=== PATIENT | female | born 1965 | race Caucasian/White ===

== ENCOUNTER 2017-01-01 16:40 | Emergency (ER) | payer BC ==
--- NOTE | 2017-01-01 19:38 | ED ORDER SUMMARY ---
..... Patient: ZECHARIAH CELESTE OrderSheet [facility] VisitID: [id number] [place] [address] 51y, F Registration Date/Time: 01/01/2017 ORDER SHEET Weight: 65.7 kg (stated) Allergies: Amoxicillin, Denies Allergy to Shellfish, Iodine GENERAL ORDERS: CBC w Diff Urgent (17:23 01/01/2017 TChapman R.N. per protocol) (Ack 17:32 LNations ER Tech1) (17:36 TChapman R.N.) CMP Urgent (17:23 01/01/2017 TChapman R.N. per protocol) (Ack 17:32 LNations ER Tech1) (17:36 TChapman R.N.) UA-Culture if indicated Urgent (17:23 01/01/2017 TChapman R.N. per protocol) (Ack 17:32 LNations ER Tech1) (18:12 LTapper) Lipase Urgent (17:23 01/01/2017 TChapman R.N. per protocol) (Ack 17:32 LNations ER Tech1) (17:36 TChapman R.N.) CT Abd/Pel w Cont (No) (normal) Urgent (18:24 01/01/2017 HBivens A.R.N.P.) (18:35 HBivens A.R.N.P.) (Cancelled: Other18:35 HBivens A.R.N.P.) CT Abd/Pel wo Cont Urgent (18:35 01/01/2017 HBivens A.R.N.P.) (Ack 18:36 LNations ER Tech1) (18:56 MCampbell) (Cancelled: Patient Mgisrny02:05 DDean R.N.) MEDICATION ORDERS: IV FLUIDS: IV NS with Normal Saline 1 Liter: initial bolus 1000 mL (1000 mL/hr), then 1000 mL/hr for X1 (NOW) (17:22 01/01/2017 TChapman R.N. per protocol) (17:38 TChapman R.N.) Ondansetron IV 4 mg (NOW) (17:37 01/01/2017 TChapman R.N. per protocol) (17:42 TChapman R.N.) Toradol IV 30 mg (NOW) (18:24 01/01/2017 HBivens A.R.N.P.) (Ack 18:25 DDean R.N.) (18:31 TChapman R.N.) Protonix IVP 40mg 40 mg (Mix in NS 10ml over 2min) (19:34 01/01/2017 HBivens A.R.N.P.) (Ack 19:38 DDean R.N.) (19:57 DDean R.N.) ORDER SHEET NOTES: [Electronically signed by Anahi Daley R.N. (20:07 01/01/2017)] [Electronically signed by Mable RothmanR.N.P. (22:49 01/01/2017)] [Electronically locked/signed by Anahi Daley R.N. (20:07 01/01/2017)]
--- NOTE | 2017-01-01 19:38 | ED CLINICAL REPORT ---
Clinical Report - Physicians/Mid Levels [facility] [address] [place] [address] 01/01/2017 16:41 Patient: ZECHARIAH CELESTE Time Seen: 18:05; initial patient contact, initial documentation, patient care assumed. Arrived- By private vehicle. Historian- patient. HISTORY OF PRESENT ILLNESS Chief Complaint: ABDOMINAL PAIN. At its maximum, severity described as severe. When seen in the E.D., severity described as severe. Modifying factors. Not worsened by anything. Not relieved by anything. It is described as "pain" and it is described as located in the epigastric area and left upper quadrant and radiating to the upper back. This started about 3 days ago and is still present. The patient has had nausea and vomiting. No loss of appetite or diarrhea. No additional abdominal pain. No recent travel. Similar symptoms previously: None. Recent medical care: Not recently seen/assessed. REVIEW OF SYSTEMS No constipation, black stools, hematemesis, difficulty with urination or pain with urination. No urinary frequency, bloody stools, fever, chest pain or difficulty breathing. Denies current . All systems otherwise negative, except as recorded above. PAST HISTORY See nurses notes. PROBLEMS: Pancreatitis. UTI - Urinary Tract Infection. Pyelonephritis. Bronchitis. LNMP - Last Normal Menstrual Period. Acid reflux. --16:56 Fariba Friedman RMahnazN. ADDITIONAL SURGERIES: Cholecystectomy. Shoulder Surgery. Stomach surgery. Ulcer surgery. --16:56 Fariba Friedman R.N. SOCIAL HISTORY Heavy tobacco smoker. Occasional alcohol use. No drug use. No recent travel. Is a local resident. FAMILY HISTORY Negative. ADDITIONAL NOTES The nursing notes have been reviewed with agreement regarding the chief complaint, HPI, ROS, PMH and patient medications and allergies. PHYSICAL EXAM Vital Signs: 01/01/2017 16:54 BP: 122/78. HR: 72. RR: 18. O2 saturation: 96%. Temp: 98 F. Pain level now: 8/10. Have been reviewed as normal and appear to be correct. Appearance: Alert. Oriented X3. No acute distress. Eyes: Pupils equal, round and reactive to light. Eyes normal inspection. Neck: Normal inspection. Neck supple. CVS: Normal heart rate and rhythm. Heart sounds normal. Pulses normal. Respiratory: No respiratory distress. Breath sounds normal. Chest nontender. Abdomen: Soft. Mild tenderness in the epigastric area. No guarding, rebound tenderness or Greenwood's, obturator or psoas sign present. Bowel sounds normal. No organomegaly. No mass. Tenderness present. Back: Normal inspection. Skin: Skin warm and dry. Normal skin color. No rash. Normal skin turgor. Extremities: Extremities exhibit normal ROM. No lower extremity edema. Neuro: Oriented X 3. No motor deficit. No sensory deficit. LABS, X-RAYS, AND EKG Laboratory Tests: UA-Culture if indicated: (KARISSA: 01/01/2017 18:08) ( [facility] [place] 18:23[place] Final results Test Result Flag Units (Reference) URINE COLOR YELLOW URINE APPEARANCE CLEAR URINE GLUCOSE NEGATIVE (NEGATIVE) URINE BILIRUBIN NEGATIVE (NEGATIVE) URINE KETONE NEGATIVE (NEGATIVE) URINE SPECIFIC GRAVITY <= 1.005 L (1.010-1.030) URINE PH 7.0 (5.0-8.0) URINE PROTEIN NEGATIVE (NEGATIVE) URINE UROBILINOGEN 0.2 EU/dL (0.2-1.0) URINE NITRITE NEGATIVE (NEGATIVE) URINE BLOOD TRACE-INTACT (NEGATIVE) URINE LEUK ESTERASE NEGATIVE (NEGATIVE) URINE RBC 1-3 rbc/hpf (0-1) URINE WBC 0-1 wbc/hpf (0-1) URINE EPITHELIAL CELLS 1-3 EPI/hpf (0-5) URINE BACTERIA NONE SEEN (NONE SEEN) URINE COMMENT CULT NOT INDICATED URINE CULTURES ARE SET-UP BASED ON THE FOLLOWING CRITERIA:POSITIVE NITRITEPOSITIVE LEUKOCYTE ESTERASEGREATER THAN 10 WHITE BLOOD CELLSMODERATE (2+) OR GREATER BACTERIA CBC w Diff: (KARISSA: 01/01/2017 17:35) ( [facility] [place] 17:49) Final results Test Result Flag Units (Reference) WHITE BLOOD COUNT 7.9 K/uL (4.5-11.5) RED BLOOD COUNT 4.33 M/uL (4.00-5.20) HEMOGLOBIN 13.4 gm/dL (12.0-16.0) HEMATOCRIT 39.8 % (36.0-46.0) MEAN CELL VOLUME 92 fL (80-100) MEAN CORPUSCULAR HGB 31 pg (26-34) MEAN CORPUSCULAR HGB CONC 34 g/dL (31-37) RED CELL DISTRIBUTION WIDTH 13.3 % (11.6-14.8) PLATELET COUNT 254 K/uL (150-400) NEUTROPHIL % 49.4 L % (50-75) LYMPH % 36.4 % (25-40) MONO % 11.4 % (3-14) EOSINOPHIL % 2.4 % (0-4) BASOPHIL % 0.4 % (0-2) CMP: (KARISSA: 01/01/2017 17:35) ( [facility]cv[place] 01/01/2017 18:03) Final results Test Result Flag Units (Reference) GLUCOSE 93 mg/dL (70-110) BUN 8 mg/dL (7-18) CREATININE 0.8 mg/dL (0.6-1.3) Estimated GFR >60 mL/min Estimated GFR- >60 mL/min Note: Persistent reduction over 3 months in eGFR<60 mL/min/1.73 m2 defines CKD. Patients with eGFR values>=60 mL/min/1.73 m2 may also have CKD if evidence ofpersistent proteinuria. Additional information may be foundat www.kidney.org. SODIUM 142 mmol/L (136-145) POTASSIUM 4.0 mmol/L (3.5-5.1) CHLORIDE 104 mmol/L (98-107) CARBON DIOXIDE 28 mmol/L (21-32) CALCIUM 8.7 mg/dL (8.5-10.1) TOTAL PROTEIN 7.3 g/dL (6.4-8.2) ALBUMIN 3.9 g/dL (3.3-5.0) BILIRUBIN, TOTAL 0.3 mg/dL (0.0-1.0) ALKALINE PHOSPHATASE 56 U/L (46-116) AST (SGOT) 18 U/L (15-37) ALT (SGPT) 26 U/L (12-78) LIPASE 240 U/L (73-393) . PROGRESS AND PROCEDURES Course of Care: 1834. reproductive healthcare assistant informing me pt has allergy to iodine, so asked to do ct without contrast, order changed now being informed pt unable to do ct, won't lie flat or still 1920. tx options discussed with pt re ct or no ct, want to try it again, pt decided no ct 19:37 01/01/17. pt has klever for narcs, hydrocodone 10mg every month, last rx 12/25 #120 and some valium, see report for full details. Patient counseled in person regarding the patient's stable condition, test results and diagnosis. 19:38. Differential Diagnosis: I considered gastritis, peptic ulcer disease, gastroesophageal reflux disease, diverticulitis, colon cancer, biliary colic, hepatitis, pancreatitis, common bile duct obstruction, hernia, ureterolithiasis and viral syndrome as a possible cause of abdominal pain in this patient. This is a partial list of diagnoses considered. (substance abuse). Above considerations are based on history, physical exam and laboratory data. Differential diagnosis was discussed with patient. Disposition: Discharged home in good and improved condition (19:38). Condition: good and stable. CLINICAL IMPRESSION Acute epigastric abdominal pain of undetermined cause. INSTRUCTIONS Warnings: GENERAL WARNINGS: Return or contact your physician immediately if your condition worsens or changes unexpectedly, if not improving as expected, or if other problems arise. SPECIFICALLY, return if you develop pain in the abdomen or pelvis, fever, the inability to keep fluids down, blood in vomitus, blood in diarrhea, fainting or lightheadedness. Prescription Medications: Zofran 4 mg: Take 1 orally every six hours as needed for nausea/vomiting. Dispense ten (10). No refills. Substitution is permissible. Bentyl 20 mg tablets: take 1 orally every 6 hours as needed. Dispense thirty (30). No refills. Substitution is permissible. Protonix 40 mg tablets: Take 1 tablet orally once daily. Dispense thirty (30). No refills. Substitution is permissible. Mobic 7.5 mg: take 1 tablet orally every day as needed for pain. Dispense thirty (30). No refills. Substitution is permissible. Understanding of the discharge instructions verbalized by patient. Follow-up with: Manny Salas MD, [facility], , [phone], [id number], [place], [id number] Follow up in about two days even if well. Call for an appointment. Summary of care provided to patient. (Electronically signed by Mable Rothman A.R.N.P. 01/01/2017 22:49)
--- NOTE | 2017-01-01 19:38 | ED ORDER SUMMARY ---
..... Patient: ZECHARIAH CELESTE OrderSheet [facility] VisitID: [id number] [place] [address] 51y, F Registration Date/Time: 01/01/2017 ORDER SHEET Weight: 65.7 kg (stated) Allergies: Amoxicillin, Denies Allergy to Shellfish, Iodine GENERAL ORDERS: CBC w Diff Urgent (17:23 01/01/2017 TChapman R.N. per protocol) (Ack 17:32 LNations ER Tech1) (17:36 TChapman R.N.) CMP Urgent (17:23 01/01/2017 TChapman R.N. per protocol) (Ack 17:32 LNations ER Tech1) (17:36 TChapman R.N.) UA-Culture if indicated Urgent (17:23 01/01/2017 TChapman R.N. per protocol) (Ack 17:32 LNations ER Tech1) (18:12 LTapper) Lipase Urgent (17:23 01/01/2017 TChapman R.N. per protocol) (Ack 17:32 LNations ER Tech1) (17:36 TChapman R.N.) CT Abd/Pel w Cont (No) (normal) Urgent (18:24 01/01/2017 HBivens A.R.N.P.) (18:35 HBivens A.R.N.P.) (Cancelled: Other18:35 HBivens A.R.N.P.) CT Abd/Pel wo Cont Urgent (18:35 01/01/2017 HBivens A.R.N.P.) (Ack 18:36 LNations ER Tech1) (18:56 MCampbell) (Cancelled: Patient Avhcedy20:05 DDean R.N.) MEDICATION ORDERS: IV FLUIDS: IV NS with Normal Saline 1 Liter: initial bolus 1000 mL (1000 mL/hr), then 1000 mL/hr for X1 (NOW) (17:22 01/01/2017 TChapman R.N. per protocol) (17:38 TChapman R.N.) Ondansetron IV 4 mg (NOW) (17:37 01/01/2017 TChapman R.N. per protocol) (17:42 TChapman R.N.) Toradol IV 30 mg (NOW) (18:24 01/01/2017 HBivens A.R.N.P.) (Ack 18:25 DDean R.N.) (18:31 TChapman R.N.) Protonix IVP 40mg 40 mg (Mix in NS 10ml over 2min) (19:34 01/01/2017 HBivens A.R.N.P.) (Ack 19:38 DDean R.N.) (19:57 DDean R.N.) ORDER SHEET NOTES: [Electronically signed by Anahi Daley R.N. (20:07 01/01/2017)] [Electronically signed by Mable RothmanR.N.P. (22:49 01/01/2017)] [Electronically locked/signed by Anahi Daley R.N. (20:07 01/01/2017)]
--- NOTE | 2017-01-01 19:38 | ED NURSING NOTES ---
Clinical Report - Nurses [facility] [address] [place] [address] 01/01/2017 16:41 [id number] Triage time 16:54. Acuity: LEVEL 3. Chief Complaint: ABDOMINAL PAIN, NAUSEA and VOMITING. MICHAEL COMA SCORE: Michael Coma Scale: 15- eyes open spontaneously (4); best verbal response- oriented x 4 (5); best motor response- obeys commands (6). --17:03 Fariba Friedman R.N. 16:54 01/01/17. BP: 122/78. HR: 72. RR: 18. O2 saturation: 96%. Temp: 98 F (oral). Pain level now: 8/10. --17:03 Fariba Friedman R.N. Weight: 65.7 kg stated. Height/Length: 67 inches Per Patient. BMI: 22.7. --16:57 Fariba Friedman R.N. Medications Vicodin Oral. Zetia Oral. --16:57 Fariba Friedman R.N. Allergies Amoxicillin. --16:57 Fariba Friedman R.N. Denies Allergy to Shellfish. Iodine. --16:57 Fariba Friedman R.N. History Arrived by private vehicle. Historian: patient. Accompanied by family. Primary physician (Jim). Onset. (started Sunday). SOCIAL HX: Heavy tobacco smoker- less than 1 pack per day. Occasional alcohol use. No drug use. FALL RISK ASSESSMENT: Fall risk assessment completed. No fall risk identified. FUNCTIONAL ASSESSMENT: Functional assessment: no impairments noted. LEARNING NEEDS ASSESSMENT: The learning needs assessment revealed no barriers. --17:03 Fariba Friedman R.N. PROBLEMS: Pancreatitis. UTI - Urinary Tract Infection. Pyelonephritis. Bronchitis. LNMP - Last Normal Menstrual Period. Acid reflux. --16:56 Fariba Friedman R.N. ADDITIONAL SURGERIES: Cholecystectomy. Shoulder Surgery. Stomach surgery. Ulcer surgery. --16:56 Fariba Friedman R.N. Assessment GENERAL / NEURO / PSYCH: The patient is awake and alert, is oriented and cooperative and appears uncomfortable. She has good eye contact. RESPIRATORY: Respirations not labored. SKIN: Skin is warm and dry. --17:03 Fariba Friedman R.N. Interventions ID band on patient. To treatment room. --17:03 Fariba Friedman R.N. PHYSICAL ASSESSMENT 17:20 01/01/17. Ambulatory to room. GENERAL / NEURO / PSYCH: Alert. Oriented X 4. Appears in no acute distress. HEENT: Mucous membranes are pink. RESPIRATORY: Respirations not labored. Breath sounds within normal limits. CVS: Capillary refill less than 2 seconds. GI / : The patient has had nausea. Abdominal tenderness in the upper abdomen. Guarding present. Guarding present. Bowel sounds within normal limits. Normal genitalia. Stool color normal. SKIN: Skin is warm and dry. --17:20 Yomaira Marquez R.N. NURSING PROGRESS NOTES 17:22. Patient gowned. Head of bed elevated. Reassurance given. Two patient identifiers checked. Call light placed in reach. Side rails up x 1. Bed placed in lowest position. Patient ready for evaluation- chart flagged. --17:22 Yomaira Marquez R.N. 17:33 01/01/2017 Site #1 started via IV in the right antecubital space with an 20g angiocath, with aseptic technique; one attempt. Blood drawn: rainbow set. Labeled in the presence of the patient and sent to the lab. Saline lock flushed with 5 mL saline. --17:38 Yomaira Marquez R.N. 17:38 01/01/2017 Started bag #1 1000 mL IV Fluids IV NS (Saline); bolus of 1000 mL wide open via site #1 --17:38 Yomaira Marquez R.N. 17:42 01/01/2017 Ondansetron (Ondansetron HCl) IVP 4 mg given. via site #1. Allergies verified and confirmed 5 rights. IV patency established. IVP given by RN. --17:42 Yomaira Marquez R.N. 17:46 waiting for patient to give urine sample. --17:46 Yomaira Marquez R.N. 17:50. Patient ready for evaluation- chart flagged. --18:10 Yomaira Marquez R.N. 18:00 pt ambulated to bathroom, steady on feet, UA oobtained and sent to lab. --18:13 Chuy Rabago 18:31 01/01/2017 Toradol IVP 30 mg given. via site #1. --18:31 Yomaira Marquez R.N. 18:31 01/01/17. BP: 120/78. HR: 52. RR: 16. O2 saturation: 100%. Temp: deferred. Pain level now: 07/22. --18:33 Yomaira Marquez R.N. Patient transported to CT by stretcher with tech. --18:33 Yomaira Marquez R.N. 18:40. ( Pt returned from CT, was unable to complete test due to dizziness and claustrophobia. Pt asked tech to bring her back to her room. ERNP notified). --18:47 Anahi Daley R.N. 18:45 01/01/2017 IV Fluids IV NS Discontinued: bag #1 infused upon discharge. Total amount infused: 1000 mL. --19:58 Anahi Daley R.N. 19:35 01/01/2017 PROTONIX (Pantoprazole Sodium) IVP 40 mg given over 2 minute(s) via site #1. IV patency established. IV site checked: no pain, redness, or swelling. IV flushed thoroughly pre- and post-medication administration. IVP given by RN. --19:57 Anahi Daley R.N. 19:46 01/01/2017 Site #1 removed. Bandaid applied. --19:56 Anahi Daley R.N. 19:30 pt resting quietly, in no acute distress. waiting on lab results. --20:07 Anahi Daley R.N. DISPOSITION / DISCHARGE 19:50. Condition at departure: stable. No learning barriers present. Discharge instructions provided and reviewed with the patient. Reviewed medication(s) (mobic, zofran, bentyl, protonix). Patient verbalized understanding. Written instructions provided in Hebrew. The patient was discharged home. She left the Emergency Department ambulatory. --19:56 Anahi Daley R.N. 19:50 01/01/17. BP: 130/82. HR: 74. RR: 20. O2 saturation: 100%. Temp: deferred. Pain level now: 06/21. --19:56 Anahi Daley R.N. Locked/Released at 01/01/2017 20:07 by Anahi Daley R.N.
--- NOTE | 2017-01-01 22:50 | ED MAR SUMMARY ---
..... Medication Administration Record [facility] [address] [place] [address] Patient: ZECHARIAH CELESTE Visit ID: [id number] 51y, F Weight: 65.7 kg Height/Length: 67 in BMI: 22.7 ALLERGIES: Amoxicillin, Denies Allergy to Shellfish, Iodine Start 17:38 01/01/2017 Yomaira Marquez R.N., Stop 18:45 01/01/2017 Anahi Daley R.N. Medication Administered: IV NS (SALINE), Dose: IV Fluids, Bolus: 1000 mL wide open, Dispensed: 1000 mL bag, Site: #1 right AC. Medication Ordered: IV NS with Normal Saline 1 Liter: initial bolus 1000 mL (1000 mL/hr), then 1000 mL/hr for X1 (NOW). Given 17:42 01/01/2017 Yomaira Marquez R.N. Medication Administered: ONDANSETRON [IVP] (ONDANSETRON HCL), Dose: 4 mg IVP, Site: #1 right AC. Medication Ordered: Ondansetron IV 4 mg (NOW). Given 18:31 01/01/2017 Yomaira Marquez R.N. Medication Administered: TORADOL [IVP], Dose: 30 mg IVP, Site: #1 right AC. Medication Ordered: Toradol IV 30 mg (NOW). Given 19:35 01/01/2017 Anahi Daley R.N. Medication Administered: PROTONIX [IVP] (PANTOPRAZOLE SODIUM), Dose: 40 mg IVP over 2 minute(s), Site: #1 right AC. Medication Ordered: Protonix IVP 40mg 40 mg (Mix in NS 10ml over 2min).
--- NOTE | 2017-01-01 22:50 | ED DISCHARGE INSTRUCTIONS ---
Patient: ZECHARIAH CELESTE General Instructions [facility] VisitID: [id number] [address] [place] [address] 51y, F Registration Date/Time: 01/01/2017 Acute epigastric abdominal pain of undetermined cause. INSTRUCTIONS Warnings: GENERAL WARNINGS: Return or contact your physician immediately if your condition worsens or changes unexpectedly, if not improving as expected, or if other problems arise. SPECIFICALLY, return if you develop pain in the abdomen or pelvis, fever, the inability to keep fluids down, blood in vomitus, blood in diarrhea, fainting or lightheadedness. Prescription Medications: Zofran 4 mg: Take 1 orally every six hours as needed for nausea/vomiting. Dispense ten (10). No refills. Substitution is permissible. Bentyl 20 mg tablets: take 1 orally every 6 hours as needed. Dispense thirty (30). No refills. Substitution is permissible. Protonix 40 mg tablets: Take 1 tablet orally once daily. Dispense thirty (30). No refills. Substitution is permissible. Mobic 7.5 mg: take 1 tablet orally every day as needed for pain. Dispense thirty (30). No refills. Substitution is permissible. Understanding of the discharge instructions verbalized by patient. Follow-up with: Manny Salas MD, [facility], , [address], [place], [id number] Follow up in about two days even if well. Call for an appointment. Summary of care provided to patient. ADDITIONAL INFORMATION Abdominal Pain, Unknown Cause (Female) The exact cause of your abdominal (stomach) pain is not certain. This does not mean that this is something to worry about, or the right tests were not done. Everyone likes to know the exact cause of the problem, but sometimes with abdominal pain, there is no clear-cut cause, and this could be a good thing. The good news is that your symptoms can be treated, and you will feel better. Your condition does not seem serious now; however, sometimes the signs of a serious problem may take more time to appear. For this reason,it is important for you to watch for any new symptoms, problems,or worsening of your condition. Over the next few days, the abdominal pain may come and go, or be continuous. Other common symptoms can include nausea and vomiting. Sometimes it can be difficult to tell if you feel nauseous, you may just feel bad and not associate that feeling with nausea. Constipation, diarrhea, and a fever may go along with the pain. The pain may continue even if treated correctly over the following days. Depending on how things go, sometimes the cause can become clear and may require further or different treatment. Additional evaluations, medications, or tests may be needed. Home care Your health care provider may prescribe medications for pain, symptoms, or an infection. Follow the health care provider's instructions for taking these medications. General care Rest until your next exam. No strenuous activities. Try to find positions that ease discomfort. A small pillow placed on the abdomen may help relieve pain. Something warm on your abdomen (such as a heating pad) may help, but be careful not to burn yourself. Diet Do not force yourself to eat, especially if having cramps, vomiting, or diarrhea. Water is important so you do not get dehydrated. Soup may also be good. Sports drinks may also help, especially if they are not too acidic. Make sure you don't drink sugary drinks as this can make things worse. Take liquids in small amounts. Do not guzzle them. Caffeine sometimes makes the pain and cramping worse. Avoid dairy products if you have vomiting or diarrhea. Don't eat large amounts at a time. Wait a few minutes between bites. Eat a diet low in fiber (called a low-residue diet). Foods allowed include refined breads, white rice, fruit and vegetable juices without pulp, tender meats. These foods will pass more easily through the intestine. Avoid whole-grain foods, whole fruits and vegetables, meats, seeds and nuts, fried or fatty foods, dairy, alcohol and spicy foods until your symptoms go away. Follow-up care Follow up with your health care provider as instructed, or if your pain does not begin to improve in the next 24 hours. When to seek medical care Seek prompt medical care if any of the following occur: Pain gets worse or moves to the right lower abdomen New or worsening vomiting or diarrhea Swelling of the abdomen Unable to pass stool for more than three days Fever of 100.4F (38C) or higher, or as directed by your healthcare provider. Blood in vomit or bowel movements (dark red or black color) Jaundice (yellow color of eyes and skin) Weakness, dizziness Chest, arm, back, neck or jaw pain Unexpected vaginal bleeding or missed period Call 911 Call emergency services if any of the following occur: Trouble breathing Confusion Fainting or loss of consciousness Rapid heart rate Seizure Ondansetron Oral disintegrating tablet What is this medicine? ONDANSETRON (on MONSERRAT se julia) is used to treat nausea and vomiting caused by chemotherapy. It is also used to prevent or treat nausea and vomiting after surgery. How should I use this medicine? These tablets are made to dissolve in the mouth. Do not try to push the tablet through the foil backing. With dry hands, peel away the foil backing and gently remove the tablet. Place the tablet in the mouth and allow it to dissolve, then swallow. While you may take these tablets with water, it is not necessary to do so. Talk to your central service supply distributor regarding the use of this medicine in children. Special care may be needed. What side effects may I notice from receiving this medicine? Side effects that you should report to your doctor or health resident care manager as soon as possible: allergic reactions like skin rash, itching or hives, swelling of the face, lips, or tongue breathing problems dizziness fast or irregular heartbeat feeling faint or lightheaded, falls fever and chills swelling of the hands and feet tightness in the chest Side effects that usually do not require medical attention (report to your doctor or health resident care manager if they continue or are bothersome): constipation or diarrhea headache What may interact with this medicine? Do not take this medicine with any of the following medications: -apomorphine -cisapride -dofetilide -dronedarone -pimozide -thioridazine -ziprasidone This medicine may also interact with the following medications: -carbamazepine -phenytoin -rifampicin -tramadol -other medicines that prolong the QT interval (cause an abnormal heart rhythm) What if I miss a dose? If you miss a dose, take it as soon as you can. If it is almost time for your next dose, take only that dose. Do not take double or extra doses. Where should I keep my medicine? Keep out of the reach of children. Store between 2 and 30 degrees C (36 and 86 degrees F). Throw away any unused medicine after the expiration date. What should I tell my health care provider before I take this medicine? They need to know if you have any of these conditions: heart disease history of irregular heartbeat liver disease low levels of magnesium or potassium in the blood an unusual or allergic reaction to ondansetron, granisetron, other medicines, foods, dyes, or preservatives or trying to get breast-feeding What should I watch for while using this medicine? Check with your doctor or health resident care manager as soon as you can if you have any sign of an allergic reaction. Dicyclomine Hydrochloride Oral tablet What is this medicine? DICYCLOMINE (dye SYE lucia castelan) is used to treat bowel problems including irritable bowel syndrome. How should I use this medicine? Take this medicine by mouth with a glass of water. Follow the directions on the prescription label. It is best to take this medicine on an empty stomach, 30 minutes to 1 hour before meals. Take your medicine at regular intervals. Do not take your medicine more often than directed. Talk to your central service supply distributor regarding the use of this medicine in children. Special care may be needed. While this drug may be prescribed for children as young as 6 months of age for selected conditions, precautions do apply. Patients over 65 years old may have a stronger reaction and need a smaller dose. What side effects may I notice from receiving this medicine? Side effects that you should report to your doctor or health resident care manager as soon as possible: agitation, nervousness, confusion difficulty swallowing dizziness, drowsiness fast or slow heartbeat hallucinations pain or difficulty passing urine Side effects that usually do not require medical attention (report to your doctor or health resident care manager if they continue or are bothersome): constipation headache nausea or vomiting sexual difficulty What may interact with this medicine? amantadine antacids benztropine digoxin disopyramide medicines for allergies, colds and breathing difficulties medicines for alzheimer's disease medicines for anxiety or sleeping problems medicines for depression or psychotic disturbances medicines for diarrhea medicines for pain metoclopramide tegaserod What if I miss a dose? If you miss a dose, take it as soon as you can. If it is almost time for your next dose, take only that dose. Do not take double or extra doses. Where should I keep my medicine? Keep out of the reach of children. Store at room temperature below 30 degrees C (86 degrees F). Protect from light. Throw away any unused medicine after the expiration date. What should I tell my health care provider before I take this medicine? They need to know if you have any of these conditions: difficulty passing urine esophagus problems or heartburn glaucoma heart disease, or previous heart attack myasthenia gravis prostate trouble stomach infection, or obstruction ulcerative colitis an unusual or allergic reaction to dicyclomine, other medicines, foods, dyes, or preservatives or trying to get breast-feeding What should I watch for while using this medicine? You may get drowsy, dizzy, or have blurred vision. Do not drive, use machinery, or do anything that needs mental alertness until you know how this medicine affects you. To reduce the risk of dizzy or fainting spells, do not sit or stand up quickly, especially if you are an older patient. Alcohol can make you more drowsy, avoid alcoholic drinks. Stay out of bright light and wear sunglasses if this medicine makes your eyes more sensitive to light. Avoid extreme heat (hot tubs, saunas). This medicine can cause you to sweat less than normal. Your body temperature could increase to dangerous levels, which may lead to heat stroke. Antacids can stop this medicine from working. If you get an upset stomach and want to take an antacid, make sure there is an interval of at least 1 to 2 hours before or after you take this medicine. Your mouth may get dry. Chewing sugarless gum or sucking hard candy, and drinking plenty of water may help. Contact your doctor if the problem does not go away or is severe. Pantoprazole Sodium Gastro-resistant tablet What is this medicine? PANTOPRAZOLE (brambila TOE pra zole) prevents the production of acid in the stomach. It is used to treat gastroesophageal reflux disease (GERD), inflammation of the esophagus, and Pedro-Gambino syndrome. How should I use this medicine? Take this medicine by mouth. Swallow the tablets whole with a drink of water. Follow the directions on the prescription label. Do not crush, break, or chew. Take your medicine at regular intervals. Do not take your medicine more often than directed. Talk to your central service supply distributor regarding the use of this medicine in children. While this drug may be prescribed for children as young as 5 years for selected conditions, precautions do apply. What side effects may I notice from receiving this medicine? Side effects that you should report to your doctor or health resident care manager as soon as possible: allergic reactions like skin rash, itching or hives, swelling of the face, lips, or tongue bone, muscle or joint pain breathing problems chest pain or chest tightness dark yellow or brown urine dizziness fast, irregular heartbeat feeling faint or lightheaded fever or sore throat muscle spasm palpitations redness, blistering, peeling or loosening of the skin, including inside the mouth seizures tremors unusual bleeding or bruising unusually weak or tired yellowing of the eyes or skin Side effects that usually do not require medical attention (Report these to your doctor or health resident care manager if they continue or are bothersome.): constipation diarrhea dry mouth headache nausea What may interact with this medicine? Do not take this medicine with any of the following medications: atazanavir nelfinavir This medicine may also interact with the following medications: ampicillin delavirdine digoxin diuretics iron salts medicines for fungal infections like ketoconazole, itraconazole and voriconazole warfarin What if I miss a dose? If you miss a dose, take it as soon as you can. If it is almost time for your next dose, take only that dose. Do not take double or extra doses. Where should I keep my medicine? Keep out of the reach of children. Store at room temperature between 15 and 30 degrees C (59 and 86 degrees F). Protect from light and moisture. Throw away any unused medicine after the expiration date. What should I tell my health care provider before I take this medicine? They need to know if you have any of these conditions: liver disease low levels of magnesium in the blood an unusual or allergic reaction to omeprazole, lansoprazole, pantoprazole, rabeprazole, other medicines, foods, dyes, or preservatives or trying to get breast-feeding What should I watch for while using this medicine? It can take several days before your stomach pain gets better. Check with your doctor or health resident care manager if your condition does not start to get better, or if it gets worse. You may need blood work done while you are taking this medicine. You have been given the following additional information: Abdominal Pain, Unknown Cause, (Female) Ondansetron Oral disintegrating tablet Dicyclomine Hydrochloride Oral tablet Pantoprazole Sodium Gastro-resistant tablet (Electronically signed by StephanMable ho A.R.N.P. 01/01/2017 22:49)
--- NOTE | 2017-01-01 22:50 | ED MAR SUMMARY ---
..... Medication Administration Record [facility] [address] [place] [address] Patient: ZECHARIAH CELESTE Visit ID: [id number] 51y, F Weight: 65.7 kg Height/Length: 67 in BMI: 22.7 ALLERGIES: Amoxicillin, Denies Allergy to Shellfish, Iodine Start 17:38 01/01/2017 Yomaira Marquez R.N., Stop 18:45 01/01/2017 Anahi Daley R.N. Medication Administered: IV NS (SALINE), Dose: IV Fluids, Bolus: 1000 mL wide open, Dispensed: 1000 mL bag, Site: #1 right AC. Medication Ordered: IV NS with Normal Saline 1 Liter: initial bolus 1000 mL (1000 mL/hr), then 1000 mL/hr for X1 (NOW). Given 17:42 01/01/2017 Yomaira Marquez R.N. Medication Administered: ONDANSETRON [IVP] (ONDANSETRON HCL), Dose: 4 mg IVP, Site: #1 right AC. Medication Ordered: Ondansetron IV 4 mg (NOW). Given 18:31 01/01/2017 Yomaira Marquez R.N. Medication Administered: TORADOL [IVP], Dose: 30 mg IVP, Site: #1 right AC. Medication Ordered: Toradol IV 30 mg (NOW). Given 19:35 01/01/2017 Anahi Daley R.N. Medication Administered: PROTONIX [IVP] (PANTOPRAZOLE SODIUM), Dose: 40 mg IVP over 2 minute(s), Site: #1 right AC. Medication Ordered: Protonix IVP 40mg 40 mg (Mix in NS 10ml over 2min).
--- NOTE | 2017-01-01 22:50 | ED MED RECONCILIATION SUMMARY ---
Patient: ZECHARIAH CELESTE Medication Reconciliation Report [facility] VisitID: [id number] [address] [place] [address] 51y, F Registration Date/Time: 01/01/2017 Weight: 65.7 kg Height/Length: 67 in. BMI: 22.7 ALLERGIES: Amoxicillin, Denies Allergy to Shellfish, Iodine The patient's Home Medications are listed below: THE FOLLOWING MEDICATIONS NEED TO BE RECONCILED: Vicodin Oral Zetia Oral The source(s) of the original Home Medication information: Not obtained. The following Medications were given to the patient in the Emergency Department: IV NS IV Fluids bolus 1000 mL wide open, administered: 01/01/2017 5:38:00 PM Ondansetron [IVP] IVP 4 mg, administered: 01/01/2017 5:42:00 PM Toradol [IVP] IVP 30 mg, administered: 01/01/2017 6:31:00 PM PROTONIX [IVP] IVP 40 mg, administered: 01/01/2017 7:35:00 PM The following Medications were prescribed to the patient: Zofran 4 mg: Take 1 orally every six hours as needed for nausea/vomiting. Dispense ten (10). No refills. Substitution is permissible. -- Mable Rothman A.R.N.P. Bentyl 20 mg tablets: take 1 orally every 6 hours as needed. Dispense thirty (30). No refills. Substitution is permissible. -- Mable Rothman A.R.N.P. Protonix 40 mg tablets: Take 1 tablet orally once daily. Dispense thirty (30). No refills. Substitution is permissible. -- Mable Rothman A.Katie.N.P. Mobic 7.5 mg: take 1 tablet orally every day as needed for pain. Dispense thirty (30). No refills. Substitution is permissible. -- Mable Rothman A.Katie.N.P.
--- NOTE | 2017-01-01 22:50 | ED MED RECONCILIATION SUMMARY ---
Patient: ZECHARIAH CELESTE Medication Reconciliation Report [facility] VisitID: [id number] [address] [place] [address] 51y, F Registration Date/Time: 01/01/2017 Weight: 65.7 kg Height/Length: 67 in. BMI: 22.7 ALLERGIES: Amoxicillin, Denies Allergy to Shellfish, Iodine The patient's Home Medications are listed below: THE FOLLOWING MEDICATIONS NEED TO BE RECONCILED: Vicodin Oral Zetia Oral The source(s) of the original Home Medication information: Not obtained. The following Medications were given to the patient in the Emergency Department: IV NS IV Fluids bolus 1000 mL wide open, administered: 01/01/2017 5:38:00 PM Ondansetron [IVP] IVP 4 mg, administered: 01/01/2017 5:42:00 PM Toradol [IVP] IVP 30 mg, administered: 01/01/2017 6:31:00 PM PROTONIX [IVP] IVP 40 mg, administered: 01/01/2017 7:35:00 PM The following Medications were prescribed to the patient: Zofran 4 mg: Take 1 orally every six hours as needed for nausea/vomiting. Dispense ten (10). No refills. Substitution is permissible. -- Mable Rothman A.R.N.P. Bentyl 20 mg tablets: take 1 orally every 6 hours as needed. Dispense thirty (30). No refills. Substitution is permissible. -- Mable Rothman A.R.N.P. Protonix 40 mg tablets: Take 1 tablet orally once daily. Dispense thirty (30). No refills. Substitution is permissible. -- Mable Rothman A.Katie.N.P. Mobic 7.5 mg: take 1 tablet orally every day as needed for pain. Dispense thirty (30). No refills. Substitution is permissible. -- Mable Rothman A.Katie.N.P.
== END 2017-01-01 19:50 | disposition home or self-care (01) ==
LOC: ED SRH 16:40
DX: R10.13 Epigastric pain (principal); F17.210 Nicotine dependence, cigarettes, uncomplicated; Z88.1 Allergy status to other antibiotic agents; Z91.041 Radiographic dye allergy status
CPT/HCPCS: 90004; 90100; 92235; 95059